=== PATIENT | male | born 1990 ===

== ENCOUNTER 2016-09-22 19:26 | Emergency (ER) | payer SELFPAY ==
[2016-09-22 19:34] VITALS: BP 120/78; PULSE 105; RESP 16; TEMP 98.2; O2SAT 98
[2016-09-22] MEDS ORDERED: TDAP Vaccine 0.5 mL Syr IM ONE (20:08)
[2016-09-22] MEDS ORDERED: Epinephrine /Lidocaine HCL 1:100,000/2% 30 ml INJ ONE (20:10)
[2016-09-22] MEDS ORDERED: Piperacillin/Tazobact 3.375 GM in Sodium Chloride 0.9% 100 ML IVPB STA (20:11)
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
[2016-09-22] MEDS ORDERED: Piperacillin/Tazobact 3.375 gm Inj IVPB ONE (21:23)
[2016-09-23] MEDS ORDERED: Sodium Chloride 0.9% 1,000 ML IV STA (00:08)
[2016-09-23] MEDS ORDERED: Iohexol 300 100 ML IJ ONE (00:09)
[2016-09-23] MEDS ORDERED: Sodium Chloride 0.9% 50 ML IV ONE (00:09)
[2016-09-23 00:16] LABS: BASO % 0.2 % (0.0-2.0); EOS # 0.1 K/uL (0.0-0.7); EOS % 1.1 % (0.0-4.0); HEMATOCRIT 38.1 % (35.0-51.0); MEAN CELL VOLUME 96.3 fl (80.0-94.0); MEAN CORPUSCULAR HEMOGLOBIN 31.1 pg (27.0-31.0); MEAN CORPUSCULAR HGB CONC 32.3 g/dL (33.0-37.0); MONO # 0.6 K/uL (0.0-0.8); MONO % 6.5 % (0.0-10.0); NEUT # 8.1 K/uL (1.8-7.0); NEUT % 82.2 % (50.0-75.0); RED CELL DISTRIBUTION WIDTH 13.7 % (11.5-14.5); WHITE BLOOD COUNT 9.8 K/uL (4.8-10.8)
[2016-09-23 00:27] LABS: BLOOD UREA NITROGEN 17 mg/dl (9-20); CARBON DIOXIDE 22 mmol/L (22-30); CHLORIDE 107 mmol/L (98-107); GFR AFRICAN-AMERICAN > 60; GLUCOSE,RANDOM 102 mg/dL (75-110); POTASSIUM 3.3 MMOL/L (3.6-5.0); SODIUM 144 mmol/l (132-148)
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
[2016-09-23] MEDS ORDERED: Potassium Chloride 20 mEq ER Tab PO ONE ×2 (01:58→02:01)
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
--- NOTE | 2016-09-23 11:41 | CT ---
PROCEDURE: CT Chest with contrast HISTORY: to evaluate abnormality noted on cervical CT COMPARISON: None. TECHNIQUE: Contiguous axial images were obtained through the chest with intravenous contrast enhancement. Sagittal and coronal reconstructions were performed. IV contrast: 90 cc of Omnipaque 300 Radiation dose (DLP): 426.24 mGy-cm. This CT exam was performed using one or more of the following dose reduction techniques: Automated exposure control, adjustment of the mA and/or kV according to patient size, and/or use of iterative reconstruction technique. FINDINGS: LUNGS: Clear lungs. Visualized airway clear. MEDIASTINUM: Again seen is 2.4 x 2 x 2 centimeter lucent gas filled structure contains thin septation at the thoracic inlet and right neck base posterior to the right thyroid and to the right of the proximal trachea. The differential diagnosis of this gas-filled structure include tracheal diverticulum or less likely esophageal diverticulum. Unremarkable thoracic aorta. No aneurysm or dissection. Normal sized heart. Main pulmonary artery unremarkable. No vascular congestion. No lymphadenopathy. PLEURA: No pleural fluid. No pneumothorax. BONES: No fracture. No destructive lesion. UPPER ABDOMEN: Grossly unremarkable. OTHER FINDINGS: None. IMPRESSION: 2.4 x 2 centimeter lucent gas filled structure at the right neck base/right thoracic inlet. The differential diagnosis includes tracheal diverticulum versus less likely esophageal diverticulum. If clinically warranted bronchoscopy or esophagram study may be obtained for further assessment. No evidence of acute pathology in the chest. Preliminary report was submitted by [facility].
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
== END 2016-09-23 02:23 | disposition home or self-care (01) ==
LOC: H.ER 19:26
DX: S02.2XXA Fracture of nasal bones, initial encounter for closed fracture (principal); S01.512A Laceration without foreign body of oral cavity, initial encounter; S09.93XA Unspecified injury of face, initial encounter; J39.8 Other specified diseases of upper respiratory tract; Y09 Assault by unspecified means
CPT/HCPCS: 12011; 70450; 70480; 71260; 72125; 80048; 85025; 90471; 90715; 96365; 99284; J2543; J7040; Q9967

== ENCOUNTER 2016-09-27 13:11 | Emergency (ER) | payer SELFPAY ==
[2016-09-27 13:21] VITALS: PULSE 84; RESP 19; TEMP 97.9; O2SAT 98
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
== END 2016-09-27 15:59 | disposition home or self-care (01) ==
LOC: H.ER 13:11
DX: Z48.02 Encounter for removal of sutures (principal)